=== PATIENT | male | born 1975 | race Hispanic/Latino ===

== ENCOUNTER 2017-08-26 22:58 | Emergency (ER) | payer SELFPAY ==
[2017-08-26 22:59] VITALS: BMI 24.2
[2017-08-26 23:17] VITALS: BP 116/77; PULSE 56; RESP 17; TEMP 98.8; O2SAT 99
--- NOTE | 2017-08-27 00:23 | ED PDOC ---
Arrival/HPI - General Historian: Patient - General Chief Complaint: Medical Clearance Time Seen by Provider: 08/26/17 22:59 - History of Present Illness Narrative History of Present Illness (Text): 08/27/17 00:19 41yo male biba for alcohol intoxication. Patient admits to drinking unknown amount of alcohol. States he was picked up from the street. He otherwise denies any somatic complaint. (Dago,Hank A) Past Medical History - Provider Review Nursing Documentation Reviewed: Yes - Infectious Disease Hx of Infectious Diseases: None - Tetanus Immunization Tetanus Immunization: Unknown - Past Medical History Past Medical History: No Previous - Cardiac Hx Cardiac Disorders: No Hx Hypertension: No - Pulmonary Hx Tuberculosis: No - Neurological HX Cerebrovascular Accident: No Hx Seizures: No - Hematological/Oncological Hx Cancer: No - Genitourinary/Gynecological Hx Sexually Transmitted Diseases: No - Psychiatric Hx Depression: No Hx Emotional Abuse: No Hx Physical Abuse: No Hx Substance Use: Yes - Past Surgical History Past Surgical History: Unable to Obtain - Anesthesia Hx Anesthesia: No - Suicidal Assessment Feels Threatened In Home Enviroment: No Family/Social History - Physician Review Nursing Documentation Reviewed: Yes Family/Social History: Unknown Family HX Smoking Status: Smoker Currrent Status Unknown Hx Alcohol Use: Yes Hx Substance Use: Yes Hx Substance Use Treatment: No Allergies/Home Meds Allergies/Adverse Reactions: Allergies No Known Allergies Allergy (Verified 09/06/16 01:17) Home Medications: Home Meds Medication Instructions Recorded Confirmed No Known Home Med 09/06/16 09/06/16 Review of Systems - Physician Review All systems were reviewed & negative as marked: Yes - Review of Systems Systems not reviewed;Unavailable: Intoxicated Constitutional: Normal Eyes: Normal ENT: Normal Respiratory: Normal Cardiovascular: Normal Gastrointestinal: Normal Genitourinary Male: Normal Musculoskeletal: Normal Skin: Normal Neurological: Normal Endocrine: Normal Hemo/Lymphatic: Normal Psychiatric: Normal Physical Exam - Physical Exam Physical Exam Limitations: Intoxication Vital Signs Reviewed: Yes Temperature: Afebrile Blood Pressure: Normal Pulse: Regular Respiratory Rate: Normal Appearance: Positive for: Well-Appearing, Non-Toxic, Comfortable Pain Distress: None Mental Status: Positive for: Alert and Oriented X 3 - Systems Exam Head: Present: Atraumatic, Normocephalic Pupils: Present: PERRL Extroacular Muscles: Present: EOMI Conjunctiva: Present: Normal Mouth: Present: Moist Mucous Membranes Neck: Present: Normal Range of Motion Respiratory/Chest: Present: Clear to Auscultation, Good Air Exchange. No: Respiratory Distress, Accessory Muscle Use Cardiovascular: Present: Regular Rate and Rhythm, Normal S1, S2. No: Murmurs Abdomen: Present: Normal Bowel Sounds. No: Tenderness, Distention, Peritoneal Signs Back: Present: Normal Inspection Upper Extremity: Present: Normal Inspection. No: Cyanosis, Edema Lower Extremity: Present: Normal Inspection. No: Edema Neurological: Present: GCS=15, CN II-XII Intact, Speech Normal Skin: Present: Warm, Dry, Normal Color. No: Rashes Psychiatric: Present: Alert, Oriented x 3, Normal Insight, Normal Concentration Vital Signs Temp Pulse Resp BP Pulse Ox 08/26/17 23:16 98.8 F 56 L 17 116/77 99 Medical Decision Making ED Course and Treatment: 08/27/17 02:00 Case signed out to me, pending sobriety. 08/27/17 02:30 Patient was observed for 4 hrs and admits to PCP abuse. Patient is awake, alert and oriented with steady gait. Patient is no longer combative, is calm and cooperative asking to be discharged home. Stable for discharge. (Wes Correa) 08/27/17 00:24 PT in ED for alcohol intoxication. He is well known to ED for alcohol abuse. He will be observed in ED for sobriety. He became agitated while in ED and was restrained to avoid injury to himself and staffs. (Hank Loza A) Disposition/Present on Arrival - Present on Arrival Any Indicators Present on Arrival: No History of DVT/PE: No History of Uncontrolled Diabetes: No Urinary Catheter: No History of Decub. Ulcer: No History Surgical Site Infection Following: None - Disposition Have Diagnosis and Disposition been Completed?: Yes Disposition Time: 01:30 - Disposition Diagnosis: Drug abuse Disposition: HOME/ ROUTINE Condition: STABLE Discharge Instructions (ExitCare): Polysubstance Abuse (ED) Additional Instructions: please return to er with worsening symptoms or concerns. Forms: [employer] ([place])
== END 2017-08-27 02:43 | disposition home or self-care (01) ==
LOC: ED 22:58
DX: F19.10 Other psychoactive substance abuse, uncomplicated (principal)

== ENCOUNTER 2017-12-30 23:22 | Observation (INO) | payer SELFPAY ==
--- NOTE | 2017-12-31 00:12 | ED PDOC ---
Arrival/HPI - General Chief Complaint: Medical Clearance Time Seen by Provider: 12/31/17 00:03 Historian: Patient, EMS - History of Present Illness Narrative History of Present Illness (Text): 12/31/17 00:12 42 yo male biba for alcohol intoxication. Patient admits to drinking unknown amount of alcohol. Patient stated he was picked up from the street. Patient has a bizarre behavior. Time/Duration: Prior to Arrival Context: Street Past Medical History - Provider Review Nursing Documentation Reviewed: Yes - Infectious Disease Hx of Infectious Diseases: None - Tetanus Immunization Tetanus Immunization: Unknown - Past Medical History Past Medical History: No Previous - Cardiac Hx Cardiac Disorders: No Hx Hypertension: No - Pulmonary Hx Tuberculosis: No - Neurological HX Cerebrovascular Accident: No Hx Seizures: No - Hematological/Oncological Hx Cancer: No - Genitourinary/Gynecological Hx Sexually Transmitted Diseases: No - Psychiatric Hx Depression: No Hx Emotional Abuse: No Hx Physical Abuse: No Hx Substance Use: Yes - Past Surgical History Past Surgical History: Unable to Obtain - Anesthesia Hx Anesthesia: No - Suicidal Assessment Feels Threatened In Home Enviroment: No Family/Social History - Physician Review Nursing Documentation Reviewed: Yes Family/Social History: Other (noncontributory) Smoking Status: Smoker Currrent Status Unknown Hx Alcohol Use: Yes Hx Substance Use: Yes Hx Substance Use Treatment: No Allergies/Home Meds Allergies/Adverse Reactions: Allergies No Known Allergies Allergy (Verified 09/06/16 01:17) Home Medications: Home Meds Medication Instructions Recorded Confirmed No Known Home Med 09/06/16 12/31/17 Review of Systems - Review of Systems Constitutional: Normal. absent: Fatigue, Weight Change, Fevers Eyes: Normal ENT: Normal Respiratory: Normal Cardiovascular: Normal Gastrointestinal: Normal Genitourinary Male: Normal Musculoskeletal: Normal Skin: Normal Neurological: Normal Endocrine: Normal Hemo/Lymphatic: Normal Psychiatric: Other (admits drinking alcohol early today. bizarre behavior). absent: Anxiety, Depression, Suicidal Ideation Physical Exam Vital Signs Temp Pulse Resp BP Pulse Ox 12/30/17 23:30 98.0 F 69 18 141/83 97 Temperature: Afebrile Blood Pressure: Normal Pulse: Regular Respiratory Rate: Normal Appearance: Positive for: Well-Appearing, Non-Toxic, Comfortable, Other ( bizarre behavior) Pain Distress: None - Systems Exam Head: Present: Atraumatic, Normocephalic, Other (no ) Pupils: Present: PERRL Extroacular Muscles: Present: EOMI Conjunctiva: Present: Normal Mouth: Present: Moist Mucous Membranes Neck: Present: Normal Range of Motion Respiratory/Chest: Present: Clear to Auscultation, Good Air Exchange. No: Respiratory Distress, Accessory Muscle Use Cardiovascular: Present: Regular Rate and Rhythm, Normal S1, S2. No: Murmurs Abdomen: Present: Normal Bowel Sounds. No: Tenderness, Distention, Peritoneal Signs Back: Present: Normal Inspection Upper Extremity: Present: Normal Inspection. No: Cyanosis, Edema Lower Extremity: Present: Normal Inspection. No: Edema Neurological: Present: GCS=15, CN II-XII Intact, Speech Normal Skin: Present: Warm, Dry, Normal Color. No: Rashes Psychiatric: Present: Alert, Other (bizarre behavior). No: Suicidal Ideation, Homicidal Ideation, Delusional, Hallucinations Medical Decision Making ED Course and Treatment: 12/31/17 01:30 Patient continues with bizarre behavior. I will order further labs, and imaging. 12/31/17 01:[address] Damon regarding patient AMS. Pending CT scan of Head, CXR, and UA. Alcohol level is normal. Dr. Damon agreed with plan for observation. Re-evaluation Time: 01:54 Reassessment Condition: Re-examined, Improving,but remains with symptoms - Lab Interpretations Lab Results: 12/31/17 00:25 12/31/17 00:25 Lab Results 12/31/17 00:25: Salicylates < 1 L, Acetaminophen < 10.0 L 12/31/17 00:25: Alcohol, Quantitative < 10 12/31/17 00:25: Sodium 145, Potassium 3.6, Chloride 108 H, Carbon Dioxide 27, Anion Gap 13, BUN 21, Creatinine 1.1, Est GFR ( Amer) > 60, Est GFR (Non- Af Amer) > 60, Random Glucose 102, Calcium 9.6, Total Bilirubin 0.6, AST 42, ALT 34, Alkaline Phosphatase 77, Total Protein 6.9, Albumin 4.2, Globulin 2.7, Albumin/Globulin Ratio 1.6 12/31/17 00:25: WBC 9.5, RBC 4.13, Hgb 13.3 L, Hct 38.4 L, MCV 93.0, MCH 32.2, MCHC 34.6, RDW 12.8, Plt Count 295, MPV 9.3, Gran % 54.9, Lymph % (Auto) 35.6 H , [place] % (Auto) 6.8 H, Eos % (Auto) 2.2, Baso % (Auto) 0.5, Gran # 5.20, Lymph # (Auto) 3.4, [place] # (Auto) 0.6, Eos # (Auto) 0.2, Baso # (Auto) 0.05 I have reviewed the lab results: Yes (pt refused to provide urine specimen) Interpretation: No clinic. lab abnormalty - RAD Interpretation Radiology Orders: 12/31/17 01:27 CHEST PORTABLE [RAD] Stat 12/31/17 01:45 HEAD W/O CONTRAST [CT] Stat - Medication Orders Current Medication Orders: Discontinued Medications Sodium Chloride (Sodium Chloride 0.9%) 1,000 mls @ 999 mls/hr IV .Q1H1M STA Stop: 12/31/17 02:44 Last Admin: 12/31/17 02:12 Dose: 999 mls/hr eMAR Start Stop Document 12/31/17 02:12 SS (Rec: 12/31/17 02:12 SS [id number]) Intravenous Solution Start Date 12/31/17 Start Time 02:12 End Date 12/31/17 End time 03:12 Total Infusion Time 60 Pantoprazole Sodium (Protonix Ec Tab) 40 mg PO 0600 VINI Last Admin: 12/31/17 06:59 Dose: Not Given Non-Admin Reason: Patient Refused Disposition/Present on Arrival - Present on Arrival Any Indicators Present on Arrival: No History of DVT/PE: No History of Uncontrolled Diabetes: No Urinary Catheter: No History of Decub. Ulcer: No History Surgical Site Infection Following: None - Disposition Have Diagnosis and Disposition been Completed?: Yes Diagnosis: Altered mental status, unspecified Disposition: HOSPITALIZED Disposition Time: 02:04 Patient Plan: Observation Condition: STABLE
[2017-12-31 00:37] LABS: BASO # 0.05 K/mm3 (0.0-2.0); BASO % 0.5 % (0.0-3.0); EOS # 0.2 (0.0-0.7); EOS % 2.2 % (1.5-5.0); GRAN # 5.2 (1.4-6.5); GRAN % 54.9 % (50.0-68.0); HEMOGLOBIN 13.3 g/dL (14.0-18.0); LYMPH # 3.4 (1.2-3.4); LYMPH % 35.6 % (22.0-35.0); MEAN CORPUSCULAR HEMOGLOBIN 32.2 pg (25.0-35.0); MEAN CORPUSCULAR HGB CONC 34.6 g/dl (31.0-37.0); MEAN PLATELET VOLUME 9.3 fl (7.0-11.0); MONO # 0.6 (0.1-0.6); MONO % 6.8 % (1.0-6.0); RBC 4.13 10^6/uL (3.5-6.1); RED CELL DISTRIBUTION WIDTH 12.8 % (11.5-14.5); WHITE BLOOD COUNT 9.5 10^3/ul (4.5-11.0)
[2017-12-31 00:51] LABS: ALB/GLOB RATIO 1.6 (1.1-1.8); ALBUMIN 4.2 g/dL (3.0-4.8); ALT/SGPT 34 U/L (7-56); AST/SGOT 42 U/L (17-59); BLOOD UREA NITROGEN 21 mg/dL (7-21); CALCIUM 9.6 mg/dL (8.4-10.5); GFR AFRICAN-AMERICAN > 60; GFR NON-AFRICAN AMERICAN > 60
[2017-12-31] MEDS ORDERED: Sodium Chloride 0.9% 1,000 ML IV STA (01:44)
[2017-12-31 02:08] LABS: ACETAMINOPHEN < 10.0 ug/ml (10.0-20.0); SALICYLATE < 1 mg/dL (2.0-20.0)
--- NOTE | 2017-12-31 02:33 | CT ---
EXAM: CT Head Without Intravenous Contrast EXAM DATE/TIME: 12/31/2017 1:45 AM CLINICAL HISTORY: The patient age is 42 years old and is male; Signs and symptoms; Altered mental status/memory loss; Additional info: [facility] Facility exam id and description: Ct heads head w/o contrast TECHNIQUE: Axial computed tomography images of the head/brain without intravenous contrast. All CT scans at this facility use one or more dose reduction techniques, viz.: automated exposure control; ma/kV adjustment per patient size (including targeted exams where dose is matched to indication; i.e. head); or iterative reconstruction technique. Coronal and sagittal reformatted images were created and reviewed. COMPARISON: No relevant prior studies available. FINDINGS: Brain: The white-king differentiation is preserved demonstrating no acute territorial type infarct. No acute intracranial hemorrhage is seen. Midline shift: There is no midline shift. Ventricles: No ventriculomegaly. Bones/joints: The calvarium demonstrates no evidence for a depressed fracture. Soft tissues: There is soft tissue swelling/hematoma or scarring involving the superior scalp. Sinuses: There is mucosal thickening of scattered ethmoid air cells. Mastoid air cells: No mastoid effusion. IMPRESSION: 1. No acute intracranial abnormality. 2. There is soft tissue swelling/hematoma or scarring involving the superior scalp. Clinical correlation is recommended. 3. Paranasal sinus disease is noted above.
--- NOTE | 2017-12-31 02:46 | CP.PCM.HP ---
<Cami Escalera - Last Filed: 12/31/17 03:06> History of Present Illness - History of Present Illness History of Present Illness: 42 year old male with PMHx of EtOH and PCP abuse brought in by the Ambulance for AMS. Patient was found on the floor. Per ED staff, patient was lethargic and exhibiting bizarre behavior. Upon my examination, patient was no longer lethargic or exhibiting bizarre behavior. He has no complaints at this time. He denies any recent drug or alcohol use. 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 He is oriented to person, and place. He is aware of the day, the year, but could not remember what month it is. He denies any fever , chills, headache, dizziness, chest pain, SOB, abdominal pain, n/v/d, constipation, urinary symptoms, focal weakness, sensory loss, generalized weakness. ROS: As stated above. PMHx: EtOH and PCP abuse PSHx: Denies All: Denies SocialHx: Smokes 0-1PPD depending on financial situation. Started smoking at 15 years old. Will drink 1 beer on occasion. States he doesn't drink too often and he can't remember his last beer. Denies any illicit drug use Hos: Denies FamHx: [place], Brain Tumor (Brothers), [place], CVA (Father), DVT (Uncle), Unspecified Cancer (Sister) Meds: None Present on Admission - Present on Admission Any Indicators Present on Admission: No Review of Systems - Review of Systems Review of Systems: As per HPI Past Patient History - Infectious Disease Hx of Infectious Diseases: None - Tetanus Immunizations Tetanus Immunization: Unknown - Past Social History Smoking Status: Smoker Currrent Status Unknown - CARDIAC Hx Cardiac Disorders: No Hx Hypertension: No - PULMONARY Hx Tuberculosis: No - NEUROLOGICAL HX Cerebrovascular Accident: No Hx Seizures: No - HEMATOLOGICAL/ONCOLOGICAL Hx Cancer: No - GENITOURINARY/GYNECOLOGICAL Hx Sexually Transmitted Disorders: No - PSYCHIATRIC Hx Depression: No Hx Emotional Abuse: No Hx Physical Abuse: No Hx Substance Use: Yes - SURGICAL HISTORY Hx Surgeries: (unknown) - ANESTHESIA Hx Anesthesia: No Meds Allergies/Adverse Reactions: Allergies Allergy/AdvReac Type Severity Reaction Status Date / Time No Known Allergies Allergy Verified 09/06/16 01:17 Physical Exam - Constitutional Appears: Non-toxic, No Acute Distress, Unkempt, Older Than Stated Age - Head Exam Head Exam: ATRAUMATIC, NORMAL INSPECTION, NORMOCEPHALIC - Eye Exam Eye Exam: EOMI, Normal appearance, PERRL. absent: Nystagmus, Scleral icterus Pupil Exam: NORMAL ACCOMODATION, PERRL. absent: Miosis, Mydriatic - ENT Exam ENT Exam: Mucous Membranes Moist, Normal Oropharynx - Neck Exam Neck exam: Positive for: Normal Inspection. Negative for: Lymphadenopathy, Thyromegaly - Respiratory Exam Respiratory Exam: Clear to Auscultation Bilateral, NORMAL BREATHING PATTERN. absent: Accessory Muscle Use, Rales, Rhonchi, Wheezes, Respiratory Distress, Stridor - Cardiovascular Exam Cardiovascular Exam: Bradycardia, REGULAR RHYTHM, +S1, +S2. absent: Diastolic murmur, JVD, Systolic Murmur Additional comments: carotid bruit. - GI/Abdominal Exam GI & Abdominal Exam: Normal Bowel Sounds, Soft. absent: Distended, Firm, Guarding, Organomegaly, Pulsatile Mass, Rebound, Rigid, Tenderness - Extremities Exam Extremities exam: Positive for: normal capillary refill, normal inspection, pedal pulses present. Negative for: calf tenderness, pedal edema - Neurological Exam Neurological exam: Alert, CN II-XII Intact - Psychiatric Exam Psychiatric exam: Normal Mood Additional comments: Restricted Affect - Skin Skin Exam: Dry, Intact, Normal Color, Warm Results - Vital Signs Recent Vital Signs: Last Vital Signs Temp 98.0 F 12/30/17 23:30 Pulse 69 12/30/17 23:30 Resp 18 12/30/17 23:30 BP 141/83 12/30/17 23:30 Pulse Ox 97 12/30/17 23:30 - Labs Result Diagrams: 12/31/17 00:25 12/31/17 00:25 Labs: Laboratory Results - last 24 hr 12/31/17 12/31/17 12/31/17 00:25 00:25 00:25 WBC 9.5 RBC 4.13 Hgb 13.3 L Hct 38.4 L MCV 93.0 MCH 32.2 MCHC 34.6 RDW 12.8 Plt Count 295 MPV 9.3 Gran % 54.9 Lymph % (Auto) 35.6 H [place] % (Auto) 6.8 H Eos % (Auto) 2.2 Baso % (Auto) 0.5 Gran # 5.20 Lymph # (Auto) 3.4 [place] # (Auto) 0.6 Eos # (Auto) 0.2 Baso # (Auto) 0.05 Sodium 145 Potassium 3.6 Chloride 108 H Carbon Dioxide 27 Anion Gap 13 BUN 21 Creatinine 1.1 Est GFR ( Amer) > 60 Est GFR (Non-Af Amer) > 60 Random Glucose 102 Calcium 9.6 Total Bilirubin 0.6 AST 42 ALT 34 Alkaline Phosphatase 77 Total Protein 6.9 Albumin 4.2 Globulin 2.7 Albumin/Globulin Ratio 1.6 Salicylates Acetaminophen Alcohol, Quantitative < 10 12/31/17 00:25 WBC RBC Hgb Hct MCV MCH MCHC RDW Plt Count MPV Gran % Lymph % (Auto) [place] % (Auto) Eos % (Auto) Baso % (Auto) Gran # Lymph # (Auto) [place] # (Auto) Eos # (Auto) Baso # (Auto) Sodium Potassium Chloride Carbon Dioxide Anion Gap BUN Creatinine Est GFR ( Amer) Est GFR (Non-Af Amer) Random Glucose Calcium Total Bilirubin AST ALT Alkaline Phosphatase Total Protein Albumin Globulin Albumin/Globulin Ratio Salicylates < 1 L Acetaminophen < 10.0 L Alcohol, Quantitative Assessment & Plan - Assessment and Plan (Free Text) Assessment: 42 year old male with PMHx of EtOH and PCP abuse presents with AMS. Admitted to observation for evaluation and treatment of AMS Plan: AMS CT Head: 1. No acute intracranial abnormality. 2. There is soft tissue swelling/hematoma or scarring involving the superior scalp. Clinical correlation is recommended. 3. Paranasal sinus disease is noted above. CXR: No Acute Disease. PENDING Official Read EKG: NSR, Sinus Bradycardia Per ED, patient was lethargic and exhibiting bizarre behavior. AMS had resolved before admitting evaluation. He denies any alcohol or drug use. Will observe overnight and put on seizure precautions due to Hx of EtOH abuse. Proph Protonix/Regular Diet. <Biju Damon - Last Filed: 12/31/17 06:17> Results - Vital Signs Recent Vital Signs: Last Vital Signs Temp 98.3 F 12/31/17 02:51 Pulse 72 12/31/17 02:51 Resp 20 12/31/17 02:51 BP 137/92 H 12/31/17 02:51 Pulse Ox 97 12/30/17 23:30 - Labs Result Diagrams: 12/31/17 00:25 12/31/17 00:25 Attending/Attestation - Attestation I have personally seen and examined this patient.: Yes I have fully participated in the care of the patient.: Yes I have reviewed all pertinent clinical information: Yes Notes (Text): 12/31/17 06:16 Patient was seen when he was in the ER in bed # 2. Agree with history, physical examination, assessment and plan.
[2017-12-31 03:02] VITALS: RESP 20; BMI 23.3
[2017-12-31] MEDS ORDERED: Pantoprazole 40 mg EC Tab PO SCH (06:00)
--- NOTE | 2017-12-31 07:00 | RAD ---
HISTORY: PES eval COMPARISON: No prior. FINDINGS: LUNGS: No active pulmonary disease. PLEURA: No significant pleural effusion identified, no pneumothorax apparent. CARDIOVASCULAR: Normal. OSSEOUS STRUCTURES: No significant abnormalities. VISUALIZED UPPER ABDOMEN: Normal. OTHER FINDINGS: None. IMPRESSION: No acute cardiopulmonary disease appreciated.
[2017-12-31 07:44] LABS: BASO # 0.04 K/mm3 (0.0-2.0); BASO % 0.6 % (0.0-3.0); EOS # 0.2 (0.0-0.7); EOS % 2.9 % (1.5-5.0); GRAN # 2.87 (1.4-6.5); GRAN % 41.7 % (50.0-68.0); HEMOGLOBIN 13.4 g/dL (14.0-18.0); LYMPH # 3.2 (1.2-3.4); LYMPH % 46.7 % (22.0-35.0); MEAN CELL VOLUME 94.3 fl (80.0-105.0); MEAN CORPUSCULAR HEMOGLOBIN 31.6 pg (25.0-35.0); MEAN CORPUSCULAR HGB CONC 33.5 g/dl (31.0-37.0); MEAN PLATELET VOLUME 9.2 fl (7.0-11.0); MONO # 0.6 (0.1-0.6); MONO % 8.1 % (1.0-6.0); RBC 4.24 10^6/uL (3.5-6.1); RED CELL DISTRIBUTION WIDTH 13.2 % (11.5-14.5); WHITE BLOOD COUNT 6.9 10^3/ul (4.5-11.0)
[2017-12-31 08:01] LABS: ALB/GLOB RATIO 1.6 (1.1-1.8); ALBUMIN 3.7 g/dL (3.0-4.8); ALT/SGPT 38 U/L (7-56); AST/SGOT 32 U/L (17-59); BLOOD UREA NITROGEN 17 mg/dL (7-21); CALCIUM 9.1 mg/dL (8.4-10.5); GFR AFRICAN-AMERICAN > 60; GFR NON-AFRICAN AMERICAN > 60; MAGNESIUM 2.5 mg/dL (1.7-2.2)
[2017-12-31 09:11] VITALS: BP 126/72; PULSE 81; TEMP 97.8; O2SAT 99
--- NOTE | 2017-12-31 10:58 | CP.PCM.DIS ---
<Nikko Carter - Last Filed: 12/31/17 10:53> Provider - Provider Date of Admission: 12/31/17 01:51 Attending physician: Jp Wilhelm MD Primary care physician: NO PRIMARY CARE PROVIDER Time Spent in preparation of Discharge (in minutes): 36 Hospital Course - Lab Results Lab Results: Most Recent Lab Values WBC 6.9 10^3/ul (4.5-11.0) D 12/31/17 07:00 RBC 4.24 10^6/uL (3.5-6.1) 12/31/17 07:00 Hgb 13.4 g/dL (14.0-18.0) L 12/31/17 07:00 Hct 40.0 % (42.0-52.0) L 12/31/17 07:00 MCV 94.3 fl (80.0-105.0) 12/31/17 07:00 MCH 31.6 pg (25.0-35.0) 12/31/17 07:00 MCHC 33.5 g/dl (31.0-37.0) 12/31/17 07:00 RDW 13.2 % (11.5-14.5) 12/31/17 07:00 Plt Count 275 10^3/uL (120.0-450.0) 12/31/17 07:00 MPV 9.2 fl (7.0-11.0) 12/31/17 07:00 Gran % 41.7 % (50.0-68.0) L 12/31/17 07:00 Lymph % (Auto) 46.7 % (22.0-35.0) H 12/31/17 07:00 [place] % (Auto) 8.1 % (1.0-6.0) H 12/31/17 07:00 Eos % (Auto) 2.9 % (1.5-5.0) 12/31/17 07:00 Baso % (Auto) 0.6 % (0.0-3.0) 12/31/17 07:00 Gran # 2.87 (1.4-6.5) 12/31/17 07:00 Lymph # (Auto) 3.2 (1.2-3.4) 12/31/17 07:00 [place] # (Auto) 0.6 (0.1-0.6) 12/31/17 07:00 Eos # (Auto) 0.2 (0.0-0.7) 12/31/17 07:00 Baso # (Auto) 0.04 K/mm3 (0.0-2.0) 12/31/17 07:00 Sodium 146 mmol/L (132-148) 12/31/17 07:00 Potassium 3.7 mmol/L (3.6-5.0) 12/31/17 07:00 Chloride 111 mmol/L (98-107) H 12/31/17 07:00 Carbon Dioxide 26 mmol/L (21-33) 12/31/17 07:00 Anion Gap 13 (10-20) 12/31/17 07:00 BUN 17 mg/dL (7-21) 12/31/17 07:00 Creatinine 0.9 mg/dl (0.8-1.5) 12/31/17 07:00 Est GFR ( Amer) > 60 12/31/17 07:00 Est GFR (Non-Af Amer) > 60 12/31/17 07:00 POC Glucose (mg/dL) 74 mg/dL (65-110) 12/31/17 07:22 Random Glucose 90 mg/dL (70-110) 12/31/17 07:00 Calcium 9.1 mg/dL (8.4-10.5) 12/31/17 07:00 Magnesium 2.5 mg/dL (1.7-2.2) H 12/31/17 07:00 Total Bilirubin 0.5 mg/dL (0.2-1.3) 12/31/17 07:00 AST 32 U/L (17-59) 12/31/17 07:00 ALT 38 U/L (7-56) 12/31/17 07:00 Alkaline Phosphatase 66 U/L (38-126) 12/31/17 07:00 Total Protein 6.0 g/dL (5.8-8.3) 12/31/17 07:00 Albumin 3.7 g/dL (3.0-4.8) 12/31/17 07:00 Globulin 2.3 gm/dL 12/31/17 07:00 Albumin/Globulin Ratio 1.6 (1.1-1.8) 12/31/17 07:00 Salicylates < 1 mg/dL (2.0-20.0) L 12/31/17 00:25 Acetaminophen < 10.0 ug/ml (10.0-20.0) L 12/31/17 00:25 Alcohol, Quantitative < 10 mg/dL (0-10) 12/31/17 00:25 - Hospital Course Hospital Course: 42 year old male with PMHx of EtOH and PCP abuse BIBA for AMS after he was found on the sidewalk. EKG showed sinus bradycardia. CT Head showed no acute intracranial abnormality, soft tissue swelling/hematoma or scarring involving the superior scalp and paranasal sinus disease. Chest X-Ray showed no active disease. Patient was given a one liter bolus of normal saline. CBC and CMP revealed no significant abnormalities. Patient was oriented to person, place, time and event and requested to leave AMA. All risks of leaving and benefits of staying were explained to patient with verbal understanding by patient. Patient signed out AMA on 12/31/17. - Date & Time of H&P Date of H&P: 12/31/17 Time of H&P: 02:46 Discharge Exam - Head Exam Head Exam: ATRAUMATIC, NORMAL INSPECTION, NORMOCEPHALIC - Eye Exam Eye Exam: EOMI, Normal appearance, PERRL Pupil Exam: NORMAL ACCOMODATION, PERRL - ENT Exam ENT Exam: Mucous Membranes Moist, Normal Exam - Neck Exam Neck exam: Full Rom, Normal Inspection - Respiratory Exam Respiratory Exam: Clear to PA & Lateral, NORMAL BREATHING PATTERN, UNREMARKABLE - Cardiovascular Exam Cardiovascular Exam: REGULAR RHYTHM, RRR, +S1, +S2. absent: Bradycardia - GI/Abdominal Exam GI & Abdominal Exam: Normal Bowel Sounds, Unremarkable - Extremities Exam Extremities exam: full ROM, normal capillary refill, normal inspection, pedal pulses present - Back Exam Back exam: NORMAL INSPECTION - Neurological Exam Neurological exam: Alert, CN II-XII Intact, Normal Gait, Oriented x3, Reflexes Normal - Psychiatric Exam Psychiatric exam: Normal Affect, Normal Mood - Skin Skin Exam: Dry, Intact, Normal Color, Warm Discharge Plan - Follow Up Plan Condition: STABLE Disposition: AGAINST MEDICAL ADVICE Instructions: Quitting Smoking for Older Adults, Quitting Smoking, Polysubstance Abuse (DC), Drugs to Help You Stop Using Tobacco Additional Instructions: Please follow up with your primary care doctor within one to two weeks. If you do not have one, the [facility] [place] [facility] [place] been provided for you. Please take all medications as prescribed If your symptoms should worsen or persist, please seek emergency medical attention. Referrals: [facility] [place] [facility] [place] PCP,NO [Primary Care Provider] - <Jp Wilhelm - Last Filed: 12/31/17 16:02> Provider - Provider Date of Admission: 12/31/17 01:51 Attending physician: Jp Wilhelm MD Primary care physician: NO PRIMARY CARE PROVIDER Hospital Course - Lab Results Lab Results: Most Recent Lab Values WBC 6.9 10^3/ul (4.5-11.0) D 12/31/17 07:00 RBC 4.24 10^6/uL (3.5-6.1) 12/31/17 07:00 Hgb 13.4 g/dL (14.0-18.0) L 12/31/17 07:00 Hct 40.0 % (42.0-52.0) L 12/31/17 07:00 MCV 94.3 fl (80.0-105.0) 12/31/17 07:00 MCH 31.6 pg (25.0-35.0) 12/31/17 07:00 MCHC 33.5 g/dl (31.0-37.0) 12/31/17 07:00 RDW 13.2 % (11.5-14.5) 12/31/17 07:00 Plt Count 275 10^3/uL (120.0-450.0) 12/31/17 07:00 MPV 9.2 fl (7.0-11.0) 12/31/17 07:00 Gran % 41.7 % (50.0-68.0) L 12/31/17 07:00 Lymph % (Auto) 46.7 % (22.0-35.0) H 12/31/17 07:00 [place] % (Auto) 8.1 % (1.0-6.0) H 12/31/17 07:00 Eos % (Auto) 2.9 % (1.5-5.0) 12/31/17 07:00 Baso % (Auto) 0.6 % (0.0-3.0) 12/31/17 07:00 Gran # 2.87 (1.4-6.5) 12/31/17 07:00 Lymph # (Auto) 3.2 (1.2-3.4) 12/31/17 07:00 [place] # (Auto) 0.6 (0.1-0.6) 12/31/17 07:00 Eos # (Auto) 0.2 (0.0-0.7) 12/31/17 07:00 Baso # (Auto) 0.04 K/mm3 (0.0-2.0) 12/31/17 07:00 Sodium 146 mmol/L (132-148) 12/31/17 07:00 Potassium 3.7 mmol/L (3.6-5.0) 12/31/17 07:00 Chloride 111 mmol/L (98-107) H 12/31/17 07:00 Carbon Dioxide 26 mmol/L (21-33) 12/31/17 07:00 Anion Gap 13 (10-20) 12/31/17 07:00 BUN 17 mg/dL (7-21) 12/31/17 07:00 Creatinine 0.9 mg/dl (0.8-1.5) 12/31/17 07:00 Est GFR ( Amer) > 60 12/31/17 07:00 Est GFR (Non-Af Amer) > 60 12/31/17 07:00 POC Glucose (mg/dL) 74 mg/dL (65-110) 12/31/17 07:22 Random Glucose 90 mg/dL (70-110) 12/31/17 07:00 Calcium 9.1 mg/dL (8.4-10.5) 12/31/17 07:00 Magnesium 2.5 mg/dL (1.7-2.2) H 12/31/17 07:00 Total Bilirubin 0.5 mg/dL (0.2-1.3) 12/31/17 07:00 AST 32 U/L (17-59) 12/31/17 07:00 ALT 38 U/L (7-56) 12/31/17 07:00 Alkaline Phosphatase 66 U/L (38-126) 12/31/17 07:00 Total Protein 6.0 g/dL (5.8-8.3) 12/31/17 07:00 Albumin 3.7 g/dL (3.0-4.8) 12/31/17 07:00 Globulin 2.3 gm/dL 12/31/17 07:00 Albumin/Globulin Ratio 1.6 (1.1-1.8) 12/31/17 07:00 Salicylates < 1 mg/dL (2.0-20.0) L 12/31/17 00:25 Acetaminophen < 10.0 ug/ml (10.0-20.0) L 12/31/17 00:25 Alcohol, Quantitative < 10 mg/dL (0-10) 12/31/17 00:25 Attending/Attestation - Attestation I have personally seen and examined this patient.: Yes I have fully participated in the care of the patient.: Yes I have reviewed all pertinent clinical information, including history, physical exam and plan: Yes Notes (Text): 12/31/17 15:56 Patient was seen and examined with lpn or medical assistant. Agreed with assessment and plan. 42 Yrs old male was admitted with H/O unconsciousness, etiology unclear, .He is alert,awake and oriented this morning.He is refusing to stay in the hospital for work up. He has signed AMA .The fuad of stay in the hospital was discussed in detail with him. Management plan was discussed in detail with patient. Education was provided.
--- NOTE | 2017-12-31 19:03 | CARD ---
APPROVED REPORT EKG Measurement Heart [id number] <Conclusion> Sinus bradycardia Otherwise normal ECG
== END 2017-12-31 10:45 | disposition left against medical advice (07) ==
LOC: ED 23:22 → ERH 12-31 01:51 → 5RSO 12-31 03:04
PROVIDERS: ADMIT Internal Medicine; ATTEND Internal Medicine
DX: R41.82 Altered mental status, unspecified (principal); F16.10 Hallucinogen abuse, uncomplicated; F10.10 Alcohol abuse, uncomplicated; F17.200 Nicotine dependence, unspecified, uncomplicated; R00.1 Bradycardia, unspecified; Y90.0 Blood alcohol level of less than 20 mg/100 ml
CPT/HCPCS: 70450; 71045; 80053; 82948; 83735; 85025; 93005; 96360; 99284; G0378; G0480; J7040

== ENCOUNTER 2018-03-17 19:25 | Emergency (ER) | payer SELFPAY ==
[2018-03-17 19:43] VITALS: RESP 18; BMI 28.7
[2018-03-17 20:37] LABS: BASO # 0.04 K/mm3 (0.0-2.0); BASO % 0.3 % (0.0-3.0); EOS # 0.2 (0.0-0.7); EOS % 1.9 % (1.5-5.0); GRAN # 7.49 (1.4-6.5); GRAN % 61.4 % (50.0-68.0); HEMOGLOBIN 14.7 g/dL (14.0-18.0); LYMPH # 3.6 (1.2-3.4); LYMPH % 29.7 % (22.0-35.0); MEAN CELL VOLUME 90.2 fl (80.0-105.0); MEAN CORPUSCULAR HEMOGLOBIN 31.9 pg (25.0-35.0); MEAN CORPUSCULAR HGB CONC 35.3 g/dl (31.0-37.0); MEAN PLATELET VOLUME 9.1 fl (7.0-11.0); MONO # 0.8 (0.1-0.6); MONO % 6.7 % (1.0-6.0); RBC 4.61 10^6/uL (3.5-6.1); RED CELL DISTRIBUTION WIDTH 13.3 % (11.5-14.5); WHITE BLOOD COUNT 12.2 10^3/ul (4.5-11.0)
[2018-03-17 20:43] LABS: ALB/GLOB RATIO 1.7 (1.1-1.8); ALBUMIN 4.6 g/dL (3.0-4.8); ALT/SGPT 29 U/L (7-56); AST/SGOT 41 U/L (17-59); BLOOD UREA NITROGEN 18 mg/dL (7-21); CALCIUM 9.4 mg/dL (8.4-10.5); GFR AFRICAN-AMERICAN > 60; GFR NON-AFRICAN AMERICAN > 60
[2018-03-17 20:55] LABS: ACETAMINOPHEN < 10.0 ug/ml (10.0-20.0); SALICYLATE < 1 mg/dL (2.0-20.0)
--- NOTE | 2018-03-17 21:11 | ED PDOC ---
Arrival/HPI - General Chief Complaint: Substance Abuse Time Seen by Provider: 03/17/18 19:32 Historian: Patient - History of Present Illness Narrative History of Present Illness (Text): 03/17/18 21:11 A 42 year old male, whose past medical history includes alcohol abuse and drug abuse, presents to the emergency department for evaluation of substance abuse. Patient is unkempt. Patient denies any fever, chills, headache, dizziness or any other complaints at this time. Symptom Onset: Sudden Symptom Course: Unchanged Activities at Onset: Rest Context: Home Past Medical History - Provider Review Nursing Documentation Reviewed: Yes - Infectious Disease Hx of Infectious Diseases: None - Tetanus Immunization Tetanus Immunization: Unknown - Past Medical History Past Medical History: No Previous - Cardiac Hx Cardiac Disorders: No Hx Hypertension: No - Pulmonary Hx Tuberculosis: No - Neurological HX Cerebrovascular Accident: No Hx Seizures: No - Hematological/Oncological Hx Cancer: No - Musculoskeletal/Rheumatological Hx Falls: No - Genitourinary/Gynecological Hx Sexually Transmitted Diseases: No - Psychiatric Hx Depression: No Hx Emotional Abuse: No Hx Physical Abuse: No Hx Substance Use: Yes - Past Surgical History Past Surgical History: Unable to Obtain - Anesthesia Hx Anesthesia: No - Suicidal Assessment Feels Threatened In Home Enviroment: No Family/Social History - Physician Review Nursing Documentation Reviewed: Yes Family/Social History: No Known Family HX Smoking Status: Smoker Currrent Status Unknown Hx Alcohol Use: Yes Hx Substance Use: Yes Hx Substance Use Treatment: No Allergies/Home Meds Allergies/Adverse Reactions: Allergies No Known Allergies Allergy (Verified 09/06/16 01:17) Home Medications: Home Meds Medication Instructions Recorded Confirmed No Known Home Med 09/06/16 12/31/17 Review of Systems - Physician Review All systems were reviewed & negative as marked: Yes - Review of Systems Constitutional: absent: Fevers, Other (chills) Neurological: absent: Headache, Dizziness Physical Exam Vital Signs Reviewed: Yes Vital Signs Pulse Resp BP Pulse Ox 03/17/18 19:41 86 18 139/78 97 Blood Pressure: Normal Pulse: Regular Respiratory Rate: Normal Appearance: Positive for: Well-Appearing, Non-Toxic, Comfortable Pain Distress: None Mental Status: Positive for: Alert and Oriented X 3 - Systems Exam Head: Present: Atraumatic, Normocephalic Pupils: Present: PERRL Extroacular Muscles: Present: EOMI Conjunctiva: Present: Normal Mouth: Present: Moist Mucous Membranes Neck: Present: Normal Range of Motion Respiratory/Chest: Present: Clear to Auscultation, Good Air Exchange. No: Respiratory Distress, Accessory Muscle Use Cardiovascular: Present: Regular Rate and Rhythm, Normal S1, S2. No: Murmurs Abdomen: No: Tenderness, Distention, Peritoneal Signs Back: Present: Normal Inspection Upper Extremity: Present: Normal Inspection. No: Cyanosis, Edema Lower Extremity: Present: Normal Inspection. No: Edema Neurological: Present: GCS=15, CN II-XII Intact, Speech Normal Skin: Present: Warm, Dry, Normal Color. No: Rashes Psychiatric: Present: Alert, Oriented x 3, Normal Insight, Normal Concentration Medical Decision Making ED Course and Treatment: 03/17/18 21:09 Impression: A 42 year old male with substance abuse. Plan: -- labs -- Urinalysis -- Reassess and disposition Prior Visits: Notes and results from previous visits were reviewed. Patient was last seen in the emergency department on 12/31/17 for evaluation of alcohol intoxication. Progress Notes: 03/17/18 23:06 On re-evaluation, patient feels better and is in no acute distress. I have discussed the results and plan with the patient, who expresses understanding. Patient in agreement with plan to be discharged home. Patient is stable for discharge. Patient was instructed to follow up with physician or return if symptoms worsen or new concerning symptoms arise. - Lab Interpretations Lab Results: 03/17/18 20:26 03/17/18 20:26 Lab Results 03/17/18 21:30: Urine Opiates Screen Negative, Urine Methadone Screen Negative, Ur Barbiturates Screen Negative, Ur Phencyclidine Scrn Positive H, Ur Amphetamines Screen Negative, U Benzodiazepines Scrn Negative, U Oth Cocaine Metabols Negative, U Cannabinoids Screen Negative 03/17/18 21:30: Urine Color Yellow, Urine Appearance Clear, Urine pH 6.0, Ur Specific [place] <= 1.005, Urine Protein Negative, Urine Glucose (UA) Negative, Urine Ketones Negative, Urine Blood Negative, Urine Nitrate Negative, Urine Bilirubin Negative, Urine Urobilinogen 0.2, Ur Leukocyte Esterase Negative 03/17/18 20:26: Alcohol, Quantitative < 10 03/17/18 20:26: Salicylates < 1 L, Acetaminophen < 10.0 L 03/17/18 20:26: Sodium 142, Potassium 4.0, Chloride 102, Carbon Dioxide 26, Anion Gap 18, BUN 18, Creatinine 1.1, Est GFR ( Amer) > 60, Est GFR (Non- Af Amer) > 60, Random Glucose 96, Calcium 9.4, Magnesium 2.1, Total Bilirubin 0.7, AST 41, ALT 29, Alkaline Phosphatase 76, Total Protein 7.4, Albumin 4.6, Globulin 2.8, Albumin/Globulin Ratio 1.7 03/17/18 20:26: WBC 12.2 H D, RBC 4.61, Hgb 14.7, Hct 41.6 L, MCV 90.2 D, MCH 31.9, MCHC 35.3, RDW 13.3, Plt Count 315, MPV 9.1, Gran % 61.4, Lymph % (Auto) 29.7, [place] % (Auto) 6.7 H, Eos % (Auto) 1.9, Baso % (Auto) 0.3, Gran # 7.49 H, Lymph # (Auto) 3.6 H, [place] # (Auto) 0.8 H, Eos # (Auto) 0.2, Baso # (Auto) 0.04 I have reviewed the lab results: Yes - Scribe Statement The provider has reviewed the documentation as recorded by the Marie Cramer Provider Scribe Attestation: All medical record entries made by the Scribe were at my direction and personally dictated by me. I have reviewed the chart and agree that the record accurately reflects my personal performance of the history, physical exam, medical decision making, and the department course for this patient. I have also personally directed, reviewed, and agree with the discharge instructions and disposition. Disposition/Present on Arrival - Present on Arrival History of DVT/PE: No History of Uncontrolled Diabetes: No Urinary Catheter: No History of Decub. Ulcer: No History Surgical Site Infection Following: None - Disposition Diagnosis: Drug abuse Disposition: HOME/ ROUTINE Patient Problems: Current Active Problems Problem Status Onset Drug abuse Acute Discharge Instructions (ExitCare): Drug Abuse and Drug Addiction (DC) Forms: [employer] (Turkish)
[2018-03-17 21:49] LABS: URINE BILIRUBIN NEGATIVE (NEGATIVE); URINE BLOOD NEGATIVE (NEGATIVE); URINE GLUCOSE (UA) NEGATIVE (NEGATIVE); URINE LEUKOCYTE ESTERASE NEGATIVE Leu/uL (NEGATIVE); URINE PROTEIN NEGATIVE mg/dL (<30 mg/dL); URINE UROBILINOGEN 0.2 E.U./dL (<1 E.U./dL)
[2018-03-17 21:51] LABS: URINE APPEARANCE CLEAR (CLEAR); URINE COLOR YELLOW (YELLOW)
[2018-03-17 22:07] LABS: BARBITURATES, UR NEGATIVE (NEGATIVE); BENZODIAZEPINES, UR NEGATIVE (NEGATIVE); OPIATES, UR NEGATIVE (NEGATIVE); PHENCYCLIDINE, UR POSITIVE (NEGATIVE)
[2018-03-17 23:50] VITALS: BP 135/69; PULSE 82; O2SAT 96
== END 2018-03-17 23:00 | disposition home or self-care (01) ==
LOC: ED 19:25
DX: F19.10 Other psychoactive substance abuse, uncomplicated (principal)
CPT/HCPCS: 80053; 81003; 83735; 85025; 99283; G0480

== ENCOUNTER 2018-03-22 20:33 | Emergency (ER) | payer SELFPAY ==
[2018-03-22 20:34] VITALS: BMI 28.7
[2018-03-22 21:05] LABS: BASO # 0.05 K/mm3 (0.0-2.0); BASO % 0.5 % (0.0-3.0); EOS # 0.2 (0.0-0.7); EOS % 2.2 % (1.5-5.0); GRAN # 5.7 (1.4-6.5); GRAN % 56.9 % (50.0-68.0); LYMPH # 3.2 (1.2-3.4); LYMPH % 31.9 % (22.0-35.0); MEAN CELL VOLUME 92.5 fl (80.0-105.0); MEAN CORPUSCULAR HEMOGLOBIN 31.9 pg (25.0-35.0); MEAN CORPUSCULAR HGB CONC 34.5 g/dl (31.0-37.0); MEAN PLATELET VOLUME 9.1 fl (7.0-11.0); MONO # 0.9 (0.1-0.6); MONO % 8.5 % (1.0-6.0); RBC 4.39 10^6/uL (3.5-6.1); RED CELL DISTRIBUTION WIDTH 13.4 % (11.5-14.5)
[2018-03-22 21:15] LABS: ALB/GLOB RATIO 1.7 (1.1-1.8); ALBUMIN 4.4 g/dL (3.0-4.8); ALT/SGPT 33 U/L (7-56); AST/SGOT 36 U/L (17-59); BLOOD UREA NITROGEN 19 mg/dL (7-21); CALCIUM 9.3 mg/dL (8.4-10.5); GFR NON-AFRICAN AMERICAN > 60
--- NOTE | 2018-03-22 21:38 | ED PDOC ---
Arrival/HPI - General Chief Complaint: Substance Abuse Time Seen by Provider: 03/22/18 20:50 Historian: Patient, EMS - History of Present Illness Narrative History of Present Illness (Text): Patient is a 42 year old male whose past medical history includes alcohol and substance abuse, and who was brought in by EMS for substance abuse. Of note EMS state they had to south patient before bringing him into Emergency department. Patient reports that he doesn't know why EMS was called and admits to using drugs "awhile ago". Patient appears unkept. Patient mentions intermittent hand numbness but denies fever, chills, shortness of breath, headache, dizziness, or any other complaint. Time/Duration: Prior to Arrival Symptom Onset: Sudden Symptom Course: Improving Context: Street Past Medical History - Provider Review Nursing Documentation Reviewed: Yes - Infectious Disease Hx of Infectious Diseases: None - Tetanus Immunization Tetanus Immunization: Unknown - Past Medical History Past Medical History: No Previous - Cardiac Hx Cardiac Disorders: No Hx Hypertension: No - Pulmonary Hx Tuberculosis: No - Neurological HX Cerebrovascular Accident: No Hx Seizures: No - Hematological/Oncological Hx Cancer: No - Musculoskeletal/Rheumatological Hx Falls: No - Genitourinary/Gynecological Hx Sexually Transmitted Diseases: No - Psychiatric Hx Depression: No Hx Emotional Abuse: No Hx Physical Abuse: No Hx Substance Use: Yes - Past Surgical History Past Surgical History: Unable to Obtain - Anesthesia Hx Anesthesia: No - Suicidal Assessment Feels Threatened In Home Enviroment: No Family/Social History - Physician Review Nursing Documentation Reviewed: Yes Family/Social History: No Known Family HX Smoking Status: Smoker Currrent Status Unknown Hx Alcohol Use: Yes Hx Substance Use: Yes Hx Substance Use Treatment: No Allergies/Home Meds Allergies/Adverse Reactions: Allergies No Known Allergies Allergy (Verified 09/06/16 01:17) Home Medications: Home Meds Medication Instructions Recorded Confirmed No Known Home Med 09/06/16 03/22/18 Review of Systems - Physician Review All systems were reviewed & negative as marked: Yes - Review of Systems Constitutional: absent: Fevers, Night Sweats Respiratory: absent: SOB Neurological: Other (Hand numbness). absent: Headache, Dizziness Physical Exam Vital Signs Reviewed: Yes Vital Signs Temp Pulse Resp BP Pulse Ox 03/22/18 23:36 98.8 F 64 18 132/90 100 03/22/18 22:10 99.1 F 50 L 24 147/102 H 88 L Temperature: Afebrile Blood Pressure: Hypertensive Pulse: Bradycardic Appearance: Positive for: Unkept Mental Status: Positive for: Alert and Oriented X 3 - Systems Exam Head: Present: Atraumatic, Normocephalic Pupils: Present: PERRL Extroacular Muscles: Present: EOMI Conjunctiva: Present: Normal Mouth: Present: Moist Mucous Membranes Neck: Present: Normal Range of Motion Respiratory/Chest: Present: Clear to Auscultation, Good Air Exchange. No: Respiratory Distress, Accessory Muscle Use Cardiovascular: Present: Regular Rate and Rhythm, Normal S1, S2. No: Murmurs Abdomen: No: Tenderness, Distention, Peritoneal Signs Back: Present: Normal Inspection Upper Extremity: Present: Normal Inspection. No: Cyanosis, Edema Lower Extremity: Present: Normal Inspection. No: Edema Neurological: Present: GCS=15, CN II-XII Intact, Speech Normal Skin: Present: Warm, Dry, Normal Color. No: Rashes Psychiatric: Present: Alert, Oriented x 3, Normal Insight, Normal Concentration Medical Decision Making ED Course and Treatment: Impression: Patient is a 42 year old male who was brought to Emergency department by EMS for substance abuse. Differential Diagnosis included but are not limited to: Substance abuse. Plan: --Head CT w/o contrast --Lab work -- Reassess and disposition Prior Visits: Notes and results from previous visits were reviewed. Patient was last seen in the emergency department on 03/17/14 for drug abuse and was discharged. Progress Notes: 03/22/18 23:39 CT Head Without Intravenous Contrast: COMPARISON: CT - HEAD W/O CONTRAST 2017-12-31 01:56 IMPRESSION: No evidence of an acute intracranial abnormality. Dictated and Authenticated by: Sun Hernandez MD 03/22/2018 11:18 PM Eastern Time ([place] & [place]) Reevaluation: On reevaluation the patient feels better and is in no acute distress. I have discussed the results and plan with the patient, who expresses understanding. Patient given the opportunity to ask question, all questions were answered and there is agreement with the plan to discharge the patient home. Patient is stable for discharge. Patient was instructed to follow up with physician/clinic in 1-2 days or return if symptoms persist/worsen or new concerning symptoms arise. - Lab Interpretations Lab Results: 03/22/18 20:50 03/22/18 20:50 Lab Results 03/22/18 22:30: Urine Opiates Screen Negative, Urine Methadone Screen Negative, Ur Barbiturates Screen Negative, Ur Phencyclidine Scrn Positive H, Ur Amphetamines Screen Negative, U Benzodiazepines Scrn Negative, U Oth Cocaine Metabols Negative, U Cannabinoids Screen Negative 03/22/18 20:50: Alcohol, Quantitative < 10 03/22/18 20:50: Sodium 147, Potassium 3.8, Chloride 107, Carbon Dioxide 27, Anion Gap 16, BUN 19, Creatinine 1.0, Est GFR ( Amer) > 60, Est GFR (Non- Af Amer) > 60, Random Glucose 79, Calcium 9.3, Total Bilirubin 0.6, AST 36, ALT 33, Alkaline Phosphatase 75, Total Protein 7.0, Albumin 4.4, Globulin 2.6, Albumin/Globulin Ratio 1.7 03/22/18 20:50: WBC 10.0, RBC 4.39, Hgb 14.0, Hct 40.6 L, MCV 92.5, MCH 31.9, MCHC 34.5, RDW 13.4, Plt Count 321, MPV 9.1, Gran % 56.9, Lymph % (Auto) 31.9, [place] % (Auto) 8.5 H, Eos % (Auto) 2.2, Baso % (Auto) 0.5, Gran # 5.70, Lymph # ( Auto) 3.2, [place] # (Auto) 0.9 H, Eos # (Auto) 0.2, Baso # (Auto) 0.05 I have reviewed the lab results: Yes - RAD Interpretation Radiology Orders: 03/22/18 21:36 HEAD W/O CONTRAST [CT] Stat - Scribe Statement The provider has reviewed the documentation as recorded by the Scribe [place]on [place]ios Provider Scribe Attestation: All medical record entries made by the Scribe were at my direction and personally dictated by me. I have reviewed the chart and agree that the record accurately reflects my personal performance of the history, physical exam, medical decision making, and the department course for this patient. I have also personally directed, reviewed, and agree with the discharge instructions and disposition. Disposition/Present on Arrival - Present on Arrival Any Indicators Present on Arrival: No History of DVT/PE: No History of Uncontrolled Diabetes: No Urinary Catheter: No History of Decub. Ulcer: No History Surgical Site Infection Following: None - Disposition Have Diagnosis and Disposition been Completed?: Yes Diagnosis: Drug abuse Disposition: HOME/ ROUTINE Disposition Time: 23:20 Condition: GOOD Discharge Instructions (ExitCare): Drug Abuse Treatment Additional Instructions: Thank you for letting us take care of you today. The emergency medical care you received today was directed at your acute symptoms. If you were prescribed any medication, please fill it and take as directed. It may take several days for your symptoms to resolve. Return to the Emergency Department if your symptoms worsen, do not improve, or if you have any other problems. Please contact your doctor or call one of the physicians/clinics you have been referred to that are listed on the Patient Visit Information form that is included in your discharge packet. Bring any paperwork you were given at discharge with you along with any medications you are taking to your follow up visit. Our treatment cannot replace ongoing medical care by a primary care provider (PCP) outside of the emergency department. Thank you for allowing the [facility] team to be part of your care today. Follow up with our clinic in 3-4 days for re-evaluation and further management. Referrals: [facility] [Outside] - [place] up [place] [facility] [place] [facility] [place] - Follow up with primary [facility]ina Dominguez, [Primary Care Provider] - Follow up with primary Forms: [employer] ([place]ese)
[2018-03-22 23:02] LABS: BARBITURATES, UR NEGATIVE (NEGATIVE); BENZODIAZEPINES, UR NEGATIVE (NEGATIVE); OPIATES, UR NEGATIVE (NEGATIVE); PHENCYCLIDINE, UR POSITIVE (NEGATIVE)
--- NOTE | 2018-03-22 23:19 | CT ---
EXAM: CT Head Without Intravenous Contrast CLINICAL HISTORY: 42 years old, male; Signs and symptoms; Other: Substance abuse; Additional info: R/O ich TECHNIQUE: Axial computed tomography images of the head/brain without intravenous contrast. All CT scans at this facility use one or more dose reduction techniques, viz.: automated exposure control; ma/kV adjustment per patient size (including targeted exams where dose is matched to indication; i.e. head); or iterative reconstruction technique. Coronal and sagittal reformatted images were created and reviewed. COMPARISON: CT - HEAD W/O CONTRAST 2017-12-31 01:56 FINDINGS: Brain: Unremarkable. No hemorrhage. No significant white matter disease. No edema. Ventricles: Unremarkable. No ventriculomegaly. Bones/joints: Deformity of the left nasal bone probably secondary to old trauma. Soft tissues: Unremarkable. Sinuses: Unremarkable as visualized. No acute sinusitis. Mastoid air cells: Unremarkable as visualized. No mastoid effusion. IMPRESSION: No evidence of an acute intracranial abnormality.
[2018-03-22 23:37] VITALS: BP 132/90; PULSE 64; RESP 18; TEMP 98.8; O2SAT 100
== END 2018-03-22 23:55 | disposition home or self-care (01) ==
LOC: ED 20:33
DX: F19.10 Other psychoactive substance abuse, uncomplicated (principal)
CPT/HCPCS: 70450; 80053; 85025; 99283; G0480

== ENCOUNTER 2018-03-26 20:34 | Emergency (ER) | payer SELFPAY ==
[2018-03-26 20:34] VITALS: BMI 28.7
== END 2018-03-26 21:41 | disposition left against medical advice (07) ==
LOC: ED 20:34
DX: Z02.89 Encounter for other administrative examinations (principal)

== ENCOUNTER 2018-07-14 19:07 | Emergency (ER) | payer SELFPAY ==
[2018-07-14 19:28] VITALS: BMI 27.4
[2018-07-14 20:10] VITALS: TEMP 98.7
--- NOTE | 2018-07-14 20:55 | ED PDOC ---
Arrival/HPI - General Chief Complaint: Substance Abuse Time Seen by Provider: 07/14/18 19:25 Historian: Patient, EMS - History of Present Illness Narrative History of Present Illness (Text): 07/14/18 21:28 42-year-old male with a history of substance abuse presents today brought in by ambulance after bystanders state patient was acting strange in front of his house. Patient denies any complaints. Denies drug use. Denies headaches dizziness or weakness. Denies any trauma or injury. Denies chest pain or shortness of breath. Denies fevers or chills. Patient states he doesn't know why he was brought to the hospital Past Medical History - Provider Review Nursing Documentation Reviewed: Yes - Travel History Have you recently traveled outside [place] w/in the past 3 mons?: No - Infectious Disease Hx of Infectious Diseases: None - Tetanus Immunization Tetanus Immunization: Unknown - Past Medical History Past Medical History: No Previous - Cardiac Hx Cardiac Disorders: No Hx Hypertension: No - Pulmonary Hx Tuberculosis: No - Neurological HX Cerebrovascular Accident: No Hx Seizures: No - Hematological/Oncological Hx Cancer: No - Musculoskeletal/Rheumatological Hx Falls: No - Genitourinary/Gynecological Hx Sexually Transmitted Diseases: No - Psychiatric Hx Depression: No Hx Emotional Abuse: No Hx Physical Abuse: No Hx Substance Use: Yes - Past Surgical History Past Surgical History: Unable to Obtain - Anesthesia Hx Anesthesia: No - Suicidal Assessment Feels Threatened In Home Enviroment: No Family/Social History - Physician Review Nursing Documentation Reviewed: Yes Family/Social History: Unknown Family HX Smoking Status: Smoker Currrent Status Unknown Hx Alcohol Use: Yes Hx Substance Use: Yes Hx Substance Use Treatment: No Allergies/Home Meds Allergies/Adverse Reactions: Allergies No Known Allergies Allergy (Verified 07/14/18 19:31) Home Medications: Home Meds Medication Instructions Recorded Confirmed No Known Home Med 09/06/16 03/22/18 Review of Systems - Review of Systems Constitutional: absent: Fatigue, Fevers Respiratory: absent: SOB, Cough Cardiovascular: absent: Chest Pain, Palpitations Gastrointestinal: absent: Abdominal Pain, Nausea, Vomiting Genitourinary Male: absent: Dysuria Musculoskeletal: absent: Arthralgias Skin: absent: Rash, Pruritis Neurological: absent: Headache, Dizziness Psychiatric: absent: Anxiety, Depression, Suicidal Ideation Physical Exam Vital Signs Reviewed: Yes Vital Signs Temp Pulse Resp BP Pulse Ox 07/14/18 20:09 98.7 F 88 18 133/65 98 Temperature: Afebrile Blood Pressure: Normal Pulse: Regular Respiratory Rate: Normal Appearance: Positive for: Non-Toxic, Comfortable, Unkept Pain Distress: None Mental Status: Positive for: Alert and Oriented X 3 - Systems Exam Head: Present: Atraumatic Mouth: Present: Moist Mucous Membranes Neck: Present: Normal Range of Motion Respiratory/Chest: Present: Clear to Auscultation Cardiovascular: Present: Regular Rate and Rhythm Abdomen: No: Tenderness, Distention, Rebound, Guarding Back: Present: Normal Inspection Upper Extremity: Present: Normal ROM Lower Extremity: Present: Normal ROM Neurological: Present: GCS=15, Speech Normal Skin: Present: Warm, Dry, Normal Color. No: Rashes Psychiatric: Present: Alert, Oriented x 3 Medical Decision Making ED Course and Treatment: 07/14/18 21:30 Patient is nontoxic in no distress vital signs are stable. CBC WNL CMP WNL Tylenol WNL Salicylate WNL Alcohol level WNL Urine drug screen + PCP UA; wnl cxr: wnl head ct; FINDINGS: Brain: Unremarkable. No hemorrhage. No significant white matter disease. No edema. Ventricles: Unremarkable. No ventriculomegaly. Bones/joints: Unremarkable. No acute fracture. Soft tissues: Unremarkable. Sinuses: Unremarkable as visualized. No acute sinusitis. Mastoid air cells: Unremarkable as visualized. No mastoid effusion. IMPRESSION: No evidence of acute intracranial hemorrhage. No midline shift or hydrocephalus. 07/15/18 02:48 pt reassessment; pt is non toxic well appearing; no distress. ambulates with steady gait. pt given taxi voucher for discharge Impression; substance abuse increase fluids follow up with the primary care physician within the next 2 days return immediately if symptoms worsen,persist or if new symptoms develop. - Lab Interpretations Lab Results: 07/14/18 22:01 07/14/18 22:01 Lab Results 07/14/18 22:01: Alcohol, Quantitative < 10 07/14/18 22:01: Salicylates < 1 L, Acetaminophen < 10.0 L 07/14/18 22:01: Urine Opiates Screen Negative, Urine Methadone Screen Negative, Ur Barbiturates Screen Negative, Ur Phencyclidine Scrn Positive H, Ur Amphetamines Screen Negative, U Benzodiazepines Scrn Negative, U Oth Cocaine Metabols Negative, U Cannabinoids Screen Negative 07/14/18 22:01: Urine Color Yellow, Urine Appearance Clear, Urine pH 6.0, Ur Specific [place] 1.010, Urine Protein Negative, Urine Glucose (UA) Negative, Urine Ketones Negative, Urine Blood Negative, Urine Nitrate Negative, Urine Bilirubin Negative, Urine Urobilinogen 0.2, Ur Leukocyte Esterase Negative 07/14/18 22:01: WBC 8.6, RBC 4.50, Hgb 14.4, Hct 39.8 L, MCV 88.4 D, MCH 32.0, MCHC 36.2, RDW 12.6, Plt Count 269, MPV 9.4, Gran % 65.5, Lymph % (Auto) 26.1, [place] % (Auto) 6.5 H, Eos % (Auto) 1.6, Baso % (Auto) 0.3, Gran # 5.64, Lymph # ( Auto) 2.3, [place] # (Auto) 0.6, Eos # (Auto) 0.1, Baso # (Auto) 0.03 07/14/18 22:01: Sodium 138, Potassium 3.6, Chloride 100, Carbon Dioxide 28, Anion Gap 14, BUN 24 H, Creatinine 1.0, Est GFR ( Amer) > 60, Est GFR ( Non-Af Amer) > 60, Random Glucose 93, Calcium 9.6, Total Bilirubin 0.5, AST 35, ALT 34, Alkaline Phosphatase 88, Total Protein 7.4, Albumin 4.6, Globulin 2.8, Albumin/Globulin Ratio 1.6 - RAD Interpretation Radiology Orders: 07/14/18 20:25 HEAD W/O CONTRAST [CT] Stat 07/14/18 20:41 CHEST PORTABLE [RAD] Stat Disposition/Present on Arrival - Present on Arrival Any Indicators Present on Arrival: No History of DVT/PE: No History of Uncontrolled Diabetes: No Urinary Catheter: No History of Decub. Ulcer: No History Surgical Site Infection Following: None - Disposition Have Diagnosis and Disposition been Completed?: Yes Diagnosis: Substance abuse Disposition: HOME/ ROUTINE Disposition Time: 02:48 Patient Plan: Discharge Patient Problems: Current Active Problems Problem Status Onset Substance abuse Acute Condition: GOOD Discharge Instructions (ExitCare): Drug Abuse and Drug Addiction (DC) Additional Instructions: increase fluids follow up with the primary care physician within the next 2 days return immediately if symptoms worsen,persist or if new symptoms develop. Referrals: Staci Hay MD [Medical Doctor] - Follow up with primary [facility] [Outside] - Follow up with primary Forms: [employer] (Pashto), WORK NOTE
[2018-07-14 22:18] LABS: BASO # 0.03 K/mm3 (0.0-2.0); BASO % 0.3 % (0.0-3.0); EOS # 0.1 (0.0-0.7); EOS % 1.6 % (1.5-5.0); GRAN # 5.64 (1.4-6.5); GRAN % 65.5 % (50.0-68.0); HEMOGLOBIN 14.4 g/dL (14.0-18.0); LYMPH # 2.3 (1.2-3.4); LYMPH % 26.1 % (22.0-35.0); MEAN CELL VOLUME 88.4 fl (80.0-105.0); MEAN CORPUSCULAR HGB CONC 36.2 g/dl (31.0-37.0); MEAN PLATELET VOLUME 9.4 fl (7.0-11.0); MONO # 0.6 (0.1-0.6); MONO % 6.5 % (1.0-6.0); RBC 4.5 10^6/uL (3.5-6.1); RED CELL DISTRIBUTION WIDTH 12.6 % (11.5-14.5); URINE BILIRUBIN NEGATIVE (NEGATIVE); URINE BLOOD NEGATIVE (NEGATIVE); URINE GLUCOSE (UA) NEGATIVE (NEGATIVE); URINE LEUKOCYTE ESTERASE NEGATIVE Leu/uL (NEGATIVE); URINE PROTEIN NEGATIVE mg/dL (<30 mg/dL); URINE UROBILINOGEN 0.2 E.U./dL (<1 E.U./dL); WHITE BLOOD COUNT 8.6 10^3/ul (4.5-11.0)
[2018-07-14 22:19] LABS: ACETAMINOPHEN < 10.0 ug/ml (10.0-20.0); ALB/GLOB RATIO 1.6 (1.1-1.8); ALBUMIN 4.6 g/dL (3.0-4.8); ALT/SGPT 34 U/L (7-56); AST/SGOT 35 U/L (17-59); BLOOD UREA NITROGEN 24 mg/dL (7-21); CALCIUM 9.6 mg/dL (8.4-10.5); GFR NON-AFRICAN AMERICAN > 60; SALICYLATE < 1 mg/dL (2.0-20.0)
[2018-07-14 22:21] LABS: URINE APPEARANCE CLEAR (CLEAR); URINE COLOR YELLOW (YELLOW)
[2018-07-14 22:32] LABS: BARBITURATES, UR NEGATIVE (NEGATIVE); BENZODIAZEPINES, UR NEGATIVE (NEGATIVE); OPIATES, UR NEGATIVE (NEGATIVE); PHENCYCLIDINE, UR POSITIVE (NEGATIVE)
[2018-07-15 04:09] VITALS: BP 130/60; PULSE 90; RESP 20
[2018-07-15 04:10] VITALS: O2SAT 98
--- NOTE | 2018-07-15 08:22 | CT ---
Date of service: 07/14/2018 PROCEDURE: CT HEAD WITHOUT CONTRAST. HISTORY: substance abuse COMPARISON: 03/22/2018 TECHNIQUE: Axial computed tomography images were obtained through the head/brain without intravenous contrast. Radiation dose: Total exam DLP = 874 mGy-cm. This CT exam was performed using one or more of the following dose reduction techniques: Automated exposure control, adjustment of the mA and/or kV according to patient size, and/or use of iterative reconstruction technique. FINDINGS: HEMORRHAGE: No intracranial hemorrhage. BRAIN: No mass effect or edema. No atrophy or chronic microvascular ischemic changes. VENTRICLES: Unremarkable. No hydrocephalus. CALVARIUM: Unremarkable. PARANASAL SINUSES: Unremarkable as visualized. No significant inflammatory changes. MASTOID AIR CELLS: Unremarkable as visualized. No inflammatory changes. OTHER FINDINGS: The report concurs with the preliminary [facility] report IMPRESSION: No acute findings
--- NOTE | 2018-07-15 09:27 | RAD ---
Date of service: 07/14/2018 HISTORY: substance abuse COMPARISON: No prior. FINDINGS: LUNGS: No active pulmonary disease. PLEURA: No significant pleural effusion identified, no pneumothorax apparent. CARDIOVASCULAR: Normal. OSSEOUS STRUCTURES: No significant abnormalities. VISUALIZED UPPER ABDOMEN: Normal. OTHER FINDINGS: None. IMPRESSION: No active disease.
== END 2018-07-15 04:09 | disposition home or self-care (01) ==
LOC: ED 19:07
DX: F19.10 Other psychoactive substance abuse, uncomplicated (principal)
CPT/HCPCS: 70450; 71045; 80053; 81003; 85025; 99283; G0480

== ENCOUNTER 2018-07-20 04:03 | Emergency (ER) | payer SELFPAY ==
[2018-07-20 04:03] VITALS: BMI 27.4
[2018-07-20 04:14] VITALS: TEMP 98.5
--- NOTE | 2018-07-20 04:27 | ED PDOC ---
Arrival/HPI - General Chief Complaint: Alcohol Ingestion Time Seen by Provider: 07/20/18 04:26 Historian: Patient, EMS - History of Present Illness Narrative History of Present Illness (Text): 07/20/18 04:26 Chon Lay is a 42 year old male, whose past medical history includes alcohol abuse and substance abuse, who presents to the Emergency department brought in by EMS for public intoxication tonight. Patient admits to drinking tonight. Patient denies any fever, chills, chest pain, shortness of breath, nausea, vomiting, diarrhea, urinary symptoms, back pain, neck pain, headache, dizziness, or any other complaints. Symptom Onset: Gradual Symptom Course: Unchanged Activities at Onset: Light Context: Home Past Medical History - Provider Review Nursing Documentation Reviewed: Yes - Infectious Disease Hx of Infectious Diseases: None - Tetanus Immunization Tetanus Immunization: Unknown - Past Medical History Past Medical History: No Previous - Cardiac Hx Cardiac Disorders: No Hx Hypertension: No - Pulmonary Hx Tuberculosis: No - Neurological HX Cerebrovascular Accident: No Hx Seizures: No - Hematological/Oncological Hx Cancer: No - Musculoskeletal/Rheumatological Hx Falls: No - Genitourinary/Gynecological Hx Sexually Transmitted Diseases: No - Psychiatric Hx Depression: No Hx Emotional Abuse: No Hx Physical Abuse: No Hx Substance Use: Yes - Past Surgical History Past Surgical History: Unable to Obtain - Anesthesia Hx Anesthesia: No - Suicidal Assessment Feels Threatened In Home Enviroment: No Family/Social History - Physician Review Nursing Documentation Reviewed: Yes Family/Social History: Unknown Family HX Smoking Status: Heavy Smoker > 10 Cigarettes Daily Hx Alcohol Use: Yes Frequency of alcohol use: Few days per week Hx Substance Use: Yes Hx Substance Use Treatment: No Allergies/Home Meds Allergies/Adverse Reactions: Allergies No Known Allergies Allergy (Verified 07/14/18 19:31) Home Medications: Home Meds Medication Instructions Recorded Confirmed No Known Home Med 09/06/16 07/20/18 Review of Systems - Physician Review All systems were reviewed & negative as marked: Yes - Review of Systems Constitutional: Normal. absent: Fevers Eyes: Normal ENT: Normal Respiratory: Normal. absent: SOB, Cough Cardiovascular: Normal. absent: Chest Pain Gastrointestinal: Normal. absent: Abdominal Pain, Diarrhea, Nausea, Vomiting Genitourinary Male: Normal. absent: Dysuria, Frequency, Hematuria, Urinary Output Changes Musculoskeletal: Normal. absent: Back Pain, Neck Pain Skin: Normal. absent: Rash Neurological: Normal. absent: Headache, Dizziness Endocrine: Normal Hemo/Lymphatic: Normal Psychiatric: Normal Physical Exam Vital Signs Reviewed: Yes Vital Signs Temp Pulse Resp BP Pulse Ox 07/20/18 04:11 98.5 F 63 18 124/87 98 Temperature: Afebrile Blood Pressure: Normal Pulse: Regular Respiratory Rate: Normal Appearance: Positive for: Well-Appearing, Non-Toxic, Comfortable Pain Distress: None Mental Status: Positive for: Alert and Oriented X 3 - Systems Exam Head: Present: Atraumatic, Normocephalic Pupils: Present: PERRL Extroacular Muscles: Present: EOMI Conjunctiva: Present: Normal Mouth: Present: Moist Mucous Membranes Neck: Present: Normal Range of Motion Respiratory/Chest: Present: Clear to Auscultation, Good Air Exchange. No: Respiratory Distress, Accessory Muscle Use Cardiovascular: Present: Regular Rate and Rhythm, Normal S1, S2. No: Murmurs Abdomen: No: Tenderness, Distention, Peritoneal Signs Back: Present: Normal Inspection Upper Extremity: Present: Normal Inspection. No: Cyanosis, Edema Lower Extremity: Present: Normal Inspection. No: Edema Neurological: Present: GCS=15, CN II-XII Intact, Speech Normal Skin: Present: Warm, Dry, Normal Color. No: Rashes Psychiatric: Present: Alert, Oriented x 3, Normal Insight, Normal Concentration Medical Decision Making ED Course and Treatment: 07/20/18 04:26 Impression: 42 year old male brought in for alcohol intoxication. Patient denies any complaints. Differential Diagnosis included but are not limited to: alcohol intoxication Plan: -- Reassess and disposition Progress Notes: 07/20/18 05:20 Pt awake, alert, and ambulating with steady gait. Sister present in Emergency department , states she will take pt home. Pt discharged home with family. - Scribe Statement The provider has reviewed the documentation as recorded by the Marie Swanson Provider Scribe Attestation: All medical record entries made by the Scribe were at my direction and personally dictated by me. I have reviewed the chart and agree that the record accurately reflects my personal performance of the history, physical exam, medical decision making, and the department course for this patient. I have also personally directed, reviewed, and agree with the discharge instructions and disposition. Disposition/Present on Arrival - Present on Arrival Any Indicators Present on Arrival: No History of DVT/PE: No History of Uncontrolled Diabetes: No Urinary Catheter: No History of Decub. Ulcer: No History Surgical Site Infection Following: None - Disposition Have Diagnosis and Disposition been Completed?: Yes Diagnosis: Alcohol abuse Disposition: HOME/ ROUTINE Disposition Time: 05:17 Patient Problems: Current Active Problems Problem Status Onset Alcohol abuse Acute Condition: STABLE Referrals: PCP,NO [Primary Care Provider] - Follow up with primary [facility] [Outside] - Follow up with primary Forms: [employer] (Bots[place]an)
[2018-07-20 05:24] VITALS: BP 110/63; PULSE 61; RESP 17; O2SAT 97
== END 2018-07-20 05:21 | disposition home or self-care (01) ==
LOC: ED 04:03
DX: F10.129 Alcohol abuse with intoxication, unspecified (principal); F17.210 Nicotine dependence, cigarettes, uncomplicated

== ENCOUNTER 2018-09-03 03:54 | Emergency (ER) | payer SELFPAY ==
[2018-09-03 03:54] VITALS: BMI 27.4
[2018-09-03 04:31] VITALS: TEMP 97.6
--- NOTE | 2018-09-03 04:37 | ED PDOC ---
Arrival/HPI - General Chief Complaint: Alcohol Ingestion Time Seen by Provider: 09/03/18 04:08 Historian: Patient, EMS - History of Present Illness Narrative History of Present Illness (Text): 09/03/18 04:34 42 year old male, whose past medical history includes alcohol abuse and substance abuse, presents to the Emergency department brought in by EMS for public intoxication tonight. Patient admits to drinking tonight. Patient denies any somatic complaints. Patient denies fevers, chills, headache, dizziness, chest pain, shortness of breath, cough, abdominal pain, nausea, vomiting, diarrhea, back pain, neck pain, urinary/bowel changes, or any other complaint. Time/Duration: Prior to Arrival Past Medical History - Provider Review Nursing Documentation Reviewed: Yes - Infectious Disease Hx of Infectious Diseases: None - Tetanus Immunization Tetanus Immunization: Unknown - Past Medical History Past Medical History: No Previous - Cardiac Hx Cardiac Disorders: No Hx Hypertension: No - Pulmonary Hx Tuberculosis: No - Neurological HX Cerebrovascular Accident: No Hx Seizures: No - Hematological/Oncological Hx Cancer: No - Musculoskeletal/Rheumatological Hx Falls: No - Genitourinary/Gynecological Hx Sexually Transmitted Diseases: No - Psychiatric Hx Depression: No Hx Emotional Abuse: No Hx Physical Abuse: No Hx Substance Use: Yes - Past Surgical History Past Surgical History: Unable to Obtain - Anesthesia Hx Anesthesia: No - Suicidal Assessment Feels Threatened In Home Enviroment: No Family/Social History - Physician Review Nursing Documentation Reviewed: Yes Family/Social History: No Known Family HX Smoking Status: Heavy Smoker > 10 Cigarettes Daily Hx Alcohol Use: Yes Hx Substance Use: Yes Hx Substance Use Treatment: No Allergies/Home Meds Allergies/Adverse Reactions: Allergies No Known Allergies Allergy (Verified 07/14/18 19:31) Home Medications: Home Meds Medication Instructions Recorded Confirmed No Known Home Med 09/06/16 07/20/18 Review of Systems - Physician Review All systems were reviewed & negative as marked: Yes - Review of Systems Constitutional: absent: Fevers, Night Sweats Respiratory: absent: SOB, Cough Cardiovascular: absent: Chest Pain Gastrointestinal: absent: Abdominal Pain, Diarrhea, Nausea, Vomiting Genitourinary Male: absent: Urinary Output Changes Musculoskeletal: absent: Back Pain, Neck Pain Neurological: absent: Headache, Dizziness Physical Exam Vital Signs Reviewed: Yes Vital Signs Temp Pulse Resp BP Pulse Ox 09/03/18 04:30 97.6 F 64 18 135/82 98 Temperature: Afebrile Blood Pressure: Normal Pulse: Regular Respiratory Rate: Normal Appearance: Positive for: Well-Appearing, Non-Toxic, Comfortable Pain Distress: None Mental Status: Positive for: Alert and Oriented X 3 Finger Stick Blood Glucose: 89 - Systems Exam Head: Present: Atraumatic, Normocephalic Pupils: Present: PERRL Extroacular Muscles: Present: EOMI Conjunctiva: Present: Normal Mouth: Present: Moist Mucous Membranes Neck: Present: Normal Range of Motion Respiratory/Chest: Present: Clear to Auscultation, Good Air Exchange. No: Respiratory Distress, Accessory Muscle Use Cardiovascular: Present: Regular Rate and Rhythm, Normal S1, S2. No: Murmurs Abdomen: No: Tenderness, Distention, Peritoneal Signs Back: Present: Normal Inspection Upper Extremity: Present: Normal Inspection. No: Cyanosis, Edema Lower Extremity: Present: Normal Inspection. No: Edema Neurological: Present: GCS=15, CN II-XII Intact, Speech Normal Skin: Present: Warm, Dry, Normal Color. No: Rashes Psychiatric: Present: Alert, Oriented x 3, Normal Insight, Intoxicated Medical Decision Making ED Course and Treatment: 09/03/18 04:41 Impression: 42 year old male presents for public intoxication Plan: -- Sobriety -- Reassess and disposition Prior Visits: Notes and results from previous visits were reviewed. Progress Notes: 09/03/18 06:21 Patient is awake/alert/sober with steady gait in ED. - Scribe Statement The provider has reviewed the documentation as recorded by the Marie Rossi Provider Scribe Attestation: All medical record entries made by the Samanthaibtristan were at my direction and personally dictated by me. I have reviewed the chart and agree that the record accurately reflects my personal performance of the history, physical exam, medical decision making, and the department course for this patient. I have also personally directed, reviewed, and agree with the discharge instructions and disposition. Disposition/Present on Arrival - Present on Arrival Any Indicators Present on Arrival: No History of DVT/PE: No History of Uncontrolled Diabetes: No Urinary Catheter: No History of Decub. Ulcer: No History Surgical Site Infection Following: None - Disposition Have Diagnosis and Disposition been Completed?: Yes Diagnosis: Alcohol abuse Disposition: HOME/ ROUTINE Disposition Time: 06:20 Patient Plan: Discharge Condition: GOOD Discharge Instructions (ExitCare): Alcohol Abuse and Alcoholism (DC) Referrals: Alcoholics Anonymous [Outside] - Follow up with primary Forms: [employer] (Pashto)
[2018-09-03 06:35] VITALS: BP 112/71; PULSE 86; RESP 17; O2SAT 99
== END 2018-09-03 06:32 | disposition home or self-care (01) ==
LOC: ED 03:54
DX: F10.10 Alcohol abuse, uncomplicated (principal)

== ENCOUNTER 2019-03-02 21:01 | Emergency (ER) | payer SELFPAY ==
[2019-03-02 21:01] VITALS: BMI 27.4
[2019-03-02 21:10] VITALS: RESP 18
--- NOTE | 2019-03-02 21:22 | ED PDOC ---
Arrival/HPI - General Chief Complaint: Substance Abuse Time Seen by Provider: 03/02/19 21:06 Historian: Patient, EMS - History of Present Illness Narrative History of Present Illness (Text): 03/02/19 21:22 Chon Lay is a 43 year old male, whose past medical history includes alcohol abuse and substance abuse, who presents to the Emergency department brought in by EMS for substance abuse tonight. Patient admits to drinking alcohol and using PCP tonight. Patient states he feels fine and denies any somatic complaints. Patient denies any fever, chills, chest pain, shortness of breath, nausea, vomiting, diarrhea, urinary symptoms, back pain, neck pain, headache, dizziness, or any other complaints. Symptom Onset: Gradual Symptom Course: Unchanged Activities at Onset: Light Context: Street Past Medical History - Provider Review Nursing Documentation Reviewed: Yes - Infectious Disease Hx of Infectious Diseases: None - Tetanus Immunization Tetanus Immunization: Unknown - Past Medical History Past Medical History: No Previous - Cardiac Hx Cardiac Disorders: No Hx Hypertension: No - Pulmonary Hx Tuberculosis: No - Neurological HX Cerebrovascular Accident: No Hx Seizures: No - Hematological/Oncological Hx Cancer: No - Musculoskeletal/Rheumatological Hx Falls: No - Genitourinary/Gynecological Hx Sexually Transmitted Diseases: No - Psychiatric Hx Depression: No Hx Emotional Abuse: No Hx Physical Abuse: No Hx Substance Use: Yes - Past Surgical History Past Surgical History: Unable to Obtain - Anesthesia Hx Anesthesia: No - Suicidal Assessment Feels Threatened In Home Enviroment: No Family/Social History - Physician Review Nursing Documentation Reviewed: Yes Family/Social History: Unknown Family HX Smoking Status: Heavy Smoker > 10 Cigarettes Daily Hx Alcohol Use: Yes Hx Substance Use: Yes Substance used: PCP Hx Substance Use Treatment: No Allergies/Home Meds Allergies/Adverse Reactions: Allergies No Known Allergies Allergy (Verified 07/14/18 19:31) Home Medications: Home Meds Medication Instructions Recorded Confirmed No Known Home Med 09/06/16 07/20/18 Review of Systems - Physician Review All systems were reviewed & negative as marked: Yes - Review of Systems Constitutional: Normal. absent: Fevers Eyes: Normal ENT: Normal Respiratory: Normal. absent: SOB, Cough Cardiovascular: Normal. absent: Chest Pain Gastrointestinal: Normal. absent: Abdominal Pain, Nausea, Vomiting Genitourinary Male: Normal. absent: Dysuria, Frequency, Hematuria, Urinary Output Changes Musculoskeletal: Normal. absent: Back Pain, Neck Pain Skin: Normal. absent: Rash Neurological: Normal. absent: Headache, Dizziness Endocrine: Normal Hemo/Lymphatic: Normal Psychiatric: Normal Physical Exam Vital Signs Reviewed: Yes Vital Signs Temp Pulse Resp BP Pulse Ox 03/02/19 21:08 97.7 F 89 18 140/93 H 96 Temperature: Afebrile Blood Pressure: Normal Pulse: Regular Respiratory Rate: Normal Appearance: Positive for: Well-Appearing, Non-Toxic, Comfortable Pain Distress: None Mental Status: Positive for: Alert and Oriented X 3 - Systems Exam Head: Present: Atraumatic, Normocephalic Pupils: Present: PERRL Extroacular Muscles: Present: EOMI Conjunctiva: Present: Normal Mouth: Present: Moist Mucous Membranes Neck: Present: Normal Range of Motion Respiratory/Chest: Present: Clear to Auscultation, Good Air Exchange. No: Respiratory Distress, Accessory Muscle Use Cardiovascular: Present: Regular Rate and Rhythm, Normal S1, S2. No: Murmurs Abdomen: No: Tenderness, Distention, Peritoneal Signs Back: Present: Normal Inspection Upper Extremity: Present: Normal Inspection. No: Cyanosis, Edema Lower Extremity: Present: Normal Inspection. No: Edema Neurological: Present: GCS=15, CN II-XII Intact, Speech Normal Skin: Present: Warm, Dry, Normal Color. No: Rashes Psychiatric: Present: Alert, Oriented x 3, Normal Insight, Normal Concentration Medical Decision Making ED Course and Treatment: 03/02/19 21:22 Impression: 43 year old male brought in for substance abuse. Patient denies any complaints. Plan: -- Reassess and disposition Progress Notes: - Scribe Statement The provider has reviewed the documentation as recorded by the Marie Swanson Provider Scribe Attestation: All medical record entries made by the Scribtristan were at my direction and personally dictated by me. I have reviewed the chart and agree that the record accurately reflects my personal performance of the history, physical exam, medical decision making, and the department course for this patient. I have also personally directed, reviewed, and agree with the discharge instructions and disposition. Disposition/Present on Arrival - Present on Arrival Any Indicators Present on Arrival: No History of DVT/PE: No History of Uncontrolled Diabetes: No Urinary Catheter: No History of Decub. Ulcer: No History Surgical Site Infection Following: None - Disposition Have Diagnosis and Disposition been Completed?: Yes Diagnosis: Drug abuse Disposition: HOME/ ROUTINE Disposition Time: 22:40 Condition: STABLE Discharge Instructions (ExitCare): Drug Abuse and Drug Addiction (DC) Forms: [employer] ([place]i)
[2019-03-02 22:43] VITALS: BP 131/78; PULSE 82; TEMP 97.8; O2SAT 98
== END 2019-03-02 22:43 | disposition home or self-care (01) ==
LOC: ED 21:01
DX: F19.10 Other psychoactive substance abuse, uncomplicated (principal); F17.210 Nicotine dependence, cigarettes, uncomplicated